=== PATIENT | female | born 1995 | race Two or more races ===

== ENCOUNTER 2024-12-24 18:10 | Emergency (ER) | payer MEDICAID, SELFPAY ==
[2024-12-24 18:10] VITALS: BMI 28.0
[2024-12-24 18:50] VITALS: BP 127/83; PULSE 90; RESP 18; TEMP 37.1; O2SAT 99
--- NOTE | 2024-12-24 18:57 | PD.EDDENTL ---
ED Dental RME/HPI General Chief complaint: Dental/Oral/Throat Stated complaint: RT SIDE DENTAL PAIN/ FACIAL SWELLING Time Seen by Provider: 12/24/24 18:26 Arrival date/time: 12/24/24 18:10 This is a 29-year-old female that comes to the emergency room with complaints of right-sided facial swelling. Patient states that she has had trouble with her wisdom teeth that they are getting cracked and getting infected. Patient states that they are supposed to remove them soon. Patient states she has had an infection in these teeth in the past. Patient denies fever, chills, and any other complaints. Related Data Previous Rx's ?Medication ?Instructions ?Recorded ibuprofen 600 mg tablet 600 mg PO Q8H PRN pain #30 tabs 12/10/20 Allergies Allergy/AdvReac Type Severity Reaction Status Date / Time bee venom protein (honey bee) Allergy Severe Swelling Verified 12/24/24 18:12 of Lip/Tongue/Throat Course Orders Category Date Time Status Clindamycin Vial [Cleocin vial] Med 12/24/24 18:55 Discontinued 600 mg IM X1 ONE HYDROcodone*/APAP 5/325 [Start 5/325] Med 12/24/24 18:55 Discontinued 1 tab PO X1 ONE Ibuprofen Tab [Motrin Tab] Med 12/24/24 18:55 Discontinued 800 mg PO X1 ONE Ondansetron Odt [Zofran Odt] Med 12/24/24 18:55 Discontinued 4 mg PO X1 ONE Vital Signs Vital signs: Vital Signs Temperature 98.8 F 12/24/24 18:50 Pulse Rate 90 12/24/24 18:50 Respiratory Rate 18 12/24/24 18:50 Blood Pressure 127/83 12/24/24 18:50 Pulse Oximetry (%) 99 12/24/24 18:50 Oxygen Delivery Method Room Air 12/24/24 18:50 Dental / Oral MDM Narrative MDM Narrative:: Will give a dose of Cleocin IM. I spoke to patient that at length the importance of follow-up. I explained to her that we would give her antibiotic shot tonight but she will need to make sure she takes antibiotics as instructed at home. Patient told to follow-up with the primary provider in 1 to 2 days. Come back to the emergency room if symptoms change or worsen. Medications / Prescriptions Medication administrations:: Medication Administration History Discontinued Medications Hydrocodone Bitart/Acetaminophen (Hydrocodone/Apap 5/325 Tablet) 1 tab PO X1 ONE Stop: 12/24/24 18:56 Clindamycin Phosphate (Clindamycin Phos Inj 150 Mg/Ml Vial 6 Ml) 600 mg IM X1 ONE Stop: 12/24/24 18:56 Ibuprofen (Ibuprofen Tab 400 Mg Tablet) 800 mg PO X1 ONE Stop: 12/24/24 18:56 Ondansetron HCl (Ondansetron Odt 4 Mg Tabrap) 4 mg PO X1 ONE; Protocol Stop: 12/24/24 18:56 Discharge Plan Plan Patient Disposition: HOME (Self Care) Patient condition on transfer: Stable Prescriptions/Referrals Prescriptions/Med Rec: No Action ibuprofen 600 mg tablet 600 mg PO Q8H PRN (Reason: pain) Qty: 30 0RF Problem List Clinical Impression: Cellulitis, Abscess, dental Patient/Caregiver Discharge Instructions Discharge Activity: activity as tolerated Education Materials: ED Abscess Antibiotic ... Additional Instructions: Follow up with primary provider in 1-2 days. Come back to ED if symptoms change or worsen Print Language: Indonesian Stand Alone Forms: Reshma Award Info., Patient Portal Info Letter PA/DISTRICT MANAGER IN TRAINING Supervising Physician PA/DISTRICT MANAGER IN TRAINING Supervising Physician: cheli
[2024-12-24] MEDS: IBUPROFEN TAB 400 MG TABLET 800 MG PO (19:14)
[2024-12-24] MEDS: HYDROcodone/APAP 5/325 TABLET 1 TAB PO (19:15)
[2024-12-24] MEDS: CLINDAMYCIN PHOS INJ 150 MG/ML VIAL 6 ML 600 MG IM (19:15)
[2024-12-24] MEDS: ONDANSETRON ODT 4 MG TABRAP PO (19:15)
== END 2024-12-24 19:23 | disposition home or self-care (01) ==
PROVIDERS: Emergency Provider Emergency Medicine
DX: K04.7 Periapical abscess without sinus (principal); K12.2 Cellulitis and abscess of mouth
CPT/HCPCS: 96372; 99283; J0736; Q0162; A9270

== ENCOUNTER 2025-07-31 21:46 | Emergency (ER) | payer MEDICAID, SELFPAY ==
[2025-07-31 21:48] VITALS: BMI 25.3
[2025-07-31 21:49] VITALS: BP 121/79; PULSE 94; RESP 18; TEMP 36.8; O2SAT 100
[2025-07-31 21:50] VITALS: BMI 25.3
--- NOTE | 2025-07-31 22:17 | EDNOTE_ITS ---
ED General RME/HPI General Chief complaint: Medical Clearance Stated complaint: MEDICAL CLEARNACE Time Seen by Provider: 07/31/25 22:17 Arrival date/time: 07/31/25 21:46 CC: Medical clearance HPI patient is a G4, P3 at estimated 5 months. She denies any vaginal bleeding vaginal discharge denies alcohol. Patient is awake alert oriented nontoxic-appearing here for medical clearance. Related Data Previous Rx's ?Medication ?Instructions ?Recorded ibuprofen 600 mg tablet 600 mg PO Q8H PRN pain #30 t abs 12/10/20 Allergies Allergy/AdvReac Type Severity Reaction Status Date / Time bee venom protein (honey bee) Allergy Severe Swelling Verified 12/24/24 18:12 of Lip/Tongue/Throat Review of Systems Review of Systems Narrative Review of Systems: GEN: No fever, no chills, no weight loss EYES: No discharge, no visual changes, no pain HEENT: No ear pain, no congestion, no sore throat PULM: No shortness of breath, no cough, no congestion CV: No chest pain, no dyspnea on exertion, no palpitations GI: No nausea, no vomiting, no diarrhea, no pain, no constipation : No frequency, no urgency, no dysuria MUSC/SKEL: No joint pain, no back pain SKIN: No rash PSYCH: No hallucinations, no depression HEME/LYMPH: No easy bleeding or bruising tendencies NEURO: No weakness, no headache Past Medical History Past Medical History NEUROLOGIC: Negative Neurological Disorders or Seizures CARDIAC: Negative Cardiac Disorders or Congestive Heart Failure RESPIRATORY: Negative Chronic Obstructive Pulmonary Disease (COPD) GASTROINTESTINAL: Negative Gastrointestinal Disorders or Colorectal Cancer GENITOURINARY: Negative Genitourinary Disorders, Renal Disease or Prostate Cancer REPRODUCTIVE: Negative Breast Cancer or Testicular Cancer MUSCULOSKELETAL: Negative Musculoskeletal Disorders or Bone Cancer ENDOCRINE: Negative Endocrine Disorders, Diabetes Mellitus Type 1 or Diabetes Mellitus Type 2 HEMATOLOGIC: Negative Blood Disorders PSYCHO/SOCIAL: Positive Depression OTHER HISTORY: Negative Autoimmune Disease, Blood Transfusions, Blood Transfusion Reaction, Anesthesia Reactions, Breast Cancer, Cervical Cancer, Colorectal Cancer, Lung Cancer, Ovarian Cancer, Prostate Cancer or Testicular Cancer Family History FAMILY HISTORY: Positive Family Cardiac Disorders and Family Cancer; Negative Family Psychiatric Problems, Family Respiratory Disorders, Family Gastrointestinal Problems, Family Surgery or Family Anesthesia Reaction Surgical History SURGICAL: Negative Section Social History SMOKING STATUS: Current some day smoker ED Exam Narrative Physical exam: [General: Not in any acute distress Head normocephalic HEENT: Within acceptable limits Neck is supple nontender Chest equal chest rise nontender to palpation Respiratory: Clear to auscultation no wheezes crackles or rubs CV: Rate rhythm is regular no murmurs rubs or clicks Abdomen is grossly distended secondary to body soft nontender no masses positive bowel sounds all 4 quadrants heart tones in the left lower quadrant 152, good variability. Active. Back: No CVA tenderness no spinous process tenderness from cervical spine thoracic and lumbar spine Skin: Intact no petechiae rash induration ulceration or crepitus Extremities: Moving all extremity against resistance cap refill less than 2 seco nds neurosensory intact Neuro: Awake alert oriented x3 Glascow coma 15 no focal deficits] Course Quality Measures none Vital Signs Vital signs: Vital Signs Temperature 98.2 F 07/31/25 21:49 Pulse Rate 94 07/31/25 21:49 Respiratory Rate 18 07/31/25 21:49 Blood Pressure 121/79 07/31/25 21:49 Pulse Oximetry (%) 100 07/31/25 21:49 Oxygen Delivery Method Room Air 07/31/25 21:49 Discharge Plan Plan Patient Disposition: Longterm/Court/Law Patient condition on transfer: Stable Prescriptions/Referrals Prescriptions/Med Rec: No Action ibuprofen 600 mg tablet 600 mg PO Q8H PRN (Reason: pain) Qty: 30 0RF Problem List Clinical Impression: Medical clearance for incarceration, Second trimester Patient/Caregiver Discharge Instructions Print Language: Swedish PA/DIRECTOR OF CASEWORK SERVICES Supervising Physician PA/DIRECTOR OF CASEWORK SERVICES Supervising Physician: Julito Nickerson ENP MDM Clinical Information Provided by: patient and law enforcement Medical Records reviewed [facility] Meds/Rx considered, not ordered None Labs/Rad/Tests considered, not ordered None Chronic Illness/Social Conditions which may negatively complicate care or outcome(s)-explain: None or not applicable EKG EKG not done Labs Labs: none Imaging Imaging interpretation: none Diagnosis Differential Diagnosis ED Complaint MDM: SAB miscarriage multiple gestation
== END 2025-07-31 22:39 ==
LOC: SERX 23:18
PROVIDERS: Emergency Provider Emergency Medicine
DX: Z02.89 Encounter for other administrative examinations (principal); Z34.92 Encounter for supervision of normal pregnancy, unspecified, second trimester
CPT/HCPCS: 99281